=== PATIENT | male | born 1960 | race Caucasian/White ===

== ENCOUNTER 2017-11-05 09:49 | Emergency (ER) | payer OTHER ==
[2017-11-05 11:22] VITALS: BP 153/90
--- NOTE | 2017-11-05 12:16 | RAD ---
HISTORY: Cough COMPARISONS: November 09, 2009 VIEWS: 4: Frontal dual-energy and lateral views of the chest. FINDINGS: CARDIOMEDIASTINAL SILHOUETTE: The cardiomediastinal silhouette is normal. ALINA: The alina are normal. PLEURA: The costophrenic angles are sharp. No pleural abnormalities are noted. LUNG PARENCHYMA: The lungs are clear. ABDOMEN: The upper abdomen is clear. There is no subphrenic gas. BONES AND SOFT TISSUES: No bone or soft tissue abnormalities are noted. OTHER: None. IMPRESSION: NO ACTIVE CARDIOPULMONARY DISEASE.
--- NOTE | 2017-11-05 12:23 | UC ---
Respiratory Complaint HPI - HPI Summary HPI Summary: COUGH, CHEST RATTLING FOR ABOUT A WEEK. HAS SUBJECTIVE FEVER AND FATIGUE. - History of Current Complaint Chief Complaint: UCRespiratory Stated Complaint: COUGH Time Seen by Provider: 11/05/17 11:19 Hx Obtained From: Patient Onset/Duration: Gradual Onset, Lasting Days, Still Present Timing: Constant Severity Initially: Moderate Severity Currently: Moderate Pain Intensity: 4 Pain Scale Used: 0-10 Numeric Character: Cough: Nonproductive Aggravating Factors: Nothing Alleviating Factors: Nothing Associated Signs And Symptoms: Positive: Fever, URI - Allergies/Home Medications Allergies/Adverse Reactions: Allergies Allergy/AdvReac Type Severity Reaction Status Date / Time No Known Allergies Allergy Verified 11/05/17 11:20 PMH/Surg Hx/FS Hx/Imm Hx Previously Healthy: Yes - Surgical History Surgical History: Yes Surgery Procedure, Year, and Place: MOLE REMOVED FROM BACK 09/30/12 - Family History Known Family History: Positive: Hypertension - Social History Alcohol Use: Occasionally Substance Use Type: None Smoking Status (MU): Never Smoked Tobacco Have You Smoked in the Last Year: No - Immunization History Most Recent Influenza Vaccination: 09/10/13 Review of Systems Constitutional: Fever, Fatigue Respiratory: Cough Cardiovascular: Negative Gastrointestinal: Negative All Other Systems Reviewed And Are Negative: Yes Physical Exam Triage Information Reviewed: Yes Appearance: Well-Appearing, No Pain Distress, Well-Nourished Vital Signs: Initial Vital Signs Temp 99.7 F 11/05/17 11:20 Pulse 67 11/05/17 11:20 Resp 18 11/05/17 11:20 BP 153/90 11/05/17 11:20 Pulse Ox 99 11/05/17 11:20 Vital Signs Reviewed: Yes Eyes: Positive: Conjunctiva Clear ENT: Positive: Hearing grossly normal, Pharynx normal, TMs normal Neck: Positive: Supple, Nontender, No Lymphadenopathy Respiratory: Positive: No respiratory distress, No accessory muscle use, Other: - coarse sounds left mid lung. Negative: Wheezing Cardiovascular Exam: Normal Abdomen Description: Positive: Soft Musculoskeletal: Positive: No Edema Neurological: Positive: Alert Psychological: Positive: Age Appropriate Behavior Skin: Negative: rashes UC Diagnostic Evaluation - Laboratory O2 Sat by Pulse Oximetry: 99 - Radiology Xray Interpretation: No Acute Changes - CXR Radiology Interpretation Completed By: Radiologist Respiratory Course/Dx - Differential Dx/Diagnosis Provider Diagnoses: ACUTE BRONCHITIS Discharge - Discharge Plan Condition: Stable Disposition: HOME Prescriptions: Azithromycin [Azithromycin 500 MG TAB] 500 mg PO DAILY #5 tab Guaifenesin-Codeine [Codeine/Guaifenesin 100-10 mg/5Ml] 5 - 10 ml PO Q6H PRN # 150 ml MDD 40ML PRN Reason: Cough predniSONE TAB* [Deltasone TAB*] 40 mg PO DAILY #10 tab Patient Education Materials: Acute Bronchitis (ED) Referrals: Jocelyn Lobato MD [Primary Care Provider] - If Needed Additional Instructions: YOUR SYMPTOMS MAY BE VIRALLY MEDIATED BUT GIVEN THE LENGTH OF TIME YOU HAVE BEEN ILL WE WILL COVER YOU WITH ANTIBIOTICS. IF YOU START THE MEDICINE BE SURE TO TAKE IT FOR THE FULL COURSE. REST, HYDRATE, OTC MEDS NEEDED. WILL ALSO TREAT WITH PREDNISONE TO HELP WITH AIRWAY INFLAMMATION AND COUGH MEDICINE. SEEK FOLLOW-UP WITH YOUR PCP IF YOU ARE NOT IMPROVING OVER THE NEXT 1-2 WEEKS.
== END 2017-11-05 12:30 | disposition home or self-care (01) ==
LOC: UCEAST 09:49
DX: J20.9 Acute bronchitis, unspecified (principal); Z72.89 Other problems related to lifestyle
CPT/HCPCS: 71020; 99212; G0463

== ENCOUNTER 2017-12-06 18:07 | Emergency (ER) | payer OTHER ==
--- OUTSIDE RECORDS SUMMARY | 2017-12-06 19:35 | XMS REPORT ---
:1960 External Reference #:[id number] Author Organization [facility] Address [address] [place] [id number] Phone [phone] Care Team Providers Name Role Phone Jocelyn Lobato MD Care Team Information Bulldozer/Loader/Compactor/Scraper Unavailable Payers Type Date Identification Numbers Payment Provider Subscriber Commercial Policy Number: [id number] [employer] Ppo Raheem Blackwell PayID: [id number] [address] [place] [address] Problems Date Description Provider Status Onset: 01/11/2017 FH: Myocardial infarct in 1st degree Jocelyn Lobato MD Active male relative <55 years Family History Date Family Member(s) Problem(s) Comments General Kidney Disease 2 paternal uncles were on dialysis in late 70's. Father 78 Father White Onset: (2001) Father Arthritis Onset: (1969) Father Depression Onset: (2004) (age Father Heart Disease CAD with stent placement. 68 Years) Onset: (2009) Father Kidney Disease Father Hypercholesterolemia Father Hypertension Father Obesity Mother 78 Mother White Onset: (1999) Mother Hyperthyroidism First Brother 52 Onset: (2008) (age First Brother Heart Disease First operation two 46 Years) stents, and then two years later another two Social History Type Date Description Comments Education Highest level completed, Doctorate Marital Status Lives With Spouse Lives With Sons Occupation Professor [employer], [employer]. Work Status Currently Working Abuse No history of abuse Learning Barriers None ETOH Use Currently consumes alcohol 1 glass of wine 3-4 times a week. Smoking Patient has never smoked Daily Caffeine consumes chocolate frequently Daily Caffeine Coffee 3 a day Enjoy Exercising Enjoys exercising Exercise Type/Frequency Jogs 5 times a week 10 K Exercise Type/Frequency Exercises regularly Currently Active Patient is currently not sexually active STD's No STD History Allergies, Adverse Reactions, Alerts Date Description Reaction Status Severity Comments 07/03/2016 NKDA active Medications Medication Date Status Form Strength Qnty SIG Indications Ordering Provider No Active 08/22/ Active Banks A Medications 2016 MD Cheryle Terbinafine 04/01/ Hx Cream 1% 24gm Apply 1 B35.6 Banks A HCL 2017 - application MD Cheryle 04/15/ topically to 2017 affected area 2 times per day for 14days for ringworm Cephalexin 03/06/ Hx Tablets 500mg 20tabs take 1 tablet L72.3 Banks A 2017 - by mouth MD Cheryle 03/16/ every 12 2017 hours for infection Clotrimazole/B 03/06/ Hx Cream 1-0.05% 45gm apply to B35.6 Banks A etamethasone 2016 - affected area MD Cheryle Dipropionate 04/01/ twice a day 2017 for 2 weeks Atorvastatin 03/06/ Hx Tablets 10mg 30tabs take 1 tablet Z82.49 Banks A Calcium 2016 - by mouth MD Cheryle 04/01/ daily for 2017 elevation of cholesterol in blood E78.00 No Active 02/10/2017 - Hx Unknown Medications 03/06/2017 Poly-Iron 150 07/24/2016 - Hx Capsules 150mg 60cap take 2 D50. Banks A 02/10/2017 s capsules by 0 MD Cheryle mouth daily for iron deficiency Sertraline HCL 07/03/2016 - Hx Tablets 50mg 45tab take 1 and 1/2 F41. Banks A 12/18/2016 s tablet by 1 MD Cheryle mouth daily for anxiety Ferrous Sulfate 04/18/2015 - Hx Tablets 325(65F Take 1 tablet D50. Unknown 07/24/2016 e) mg by mouth once 0 daily for iron deficiency anemia Sertraline HCL 11/18/2010 - Hx Tablets 100mg take one F41. Unknown 07/03/2016 tablet by 1 mouth once daily for depression Simvastatin 11/18/2009 - Hx Tablets 10mg 1 by mouth Z82. Unknown 06/18/2015 every day 49 every night at bedtime E78.0 Immunizations CPT Code Status Date Vaccine Lot # [id number] Given 08/22/2017 Influenza Vaccine Quadrivalent Preser/Antibiotic [id number] Free [place] Use 13186 Given 07/24/2016 Tdap-Tetanus, Diphtheria Toxoids/Acellular [id number] Pertussis Vaccine 7+ 25419 Given 07/24/2016 Influenza Virus Split 3 Yrs And Above For [id number] Intramuscular Use Vital Signs Date Vital Result Comment 08/22/2017 Body Temperature 98.4 F O2 % BldC Oximetry 99 % Heart Rate 78 /min BP Systolic 110 mmHg BP Diastolic 70 mmHg BMI (Body Mass Index) 24.6 kg/m2 Weight 178.00 lb Height 71.25 inches 5'11.25" 03/06/2017 Body Temperature 98.6 F 01/11/2017 Weight 186.00 lb 07/03/2016 O2 % BldC Oximetry 98 % Heart Rate 74 /min BP Systolic 125 mmHg BP Diastolic 80 mmHg BMI (Body Mass Index) 24.8 kg/m2 Weight 178.00 lb Height 71 inches 5'11" Results Test Date Test Result H/L Range Note Order 12/03/2017 PPD Zero/Negative CBC No Diff 08/21/2017 White Blood Count 5.9 10^3/uL 3.5-10.8 Red Blood Count 4.95 10^6/uL 4.0-5.4 Hemoglobin 16.0 g/dL 14.0-18.0 Hematocrit 47 % 42-52 Mean Corpuscular Volume 95 fL High 80-94 Mean Corpuscular Hemoglobin 32 pg High 27-31 Mean Corpuscular HGB Conc 34 g/dL 31-36 Red Cell Distribution Width 13 % 10.5-15 Platelet Count 241 10^3/uL 150-450 Mean Platelet Volume 9 um3 7.4-10.4 Basic Metabolic Panel 08/21/2017 Sodium 138 mmol/L 133-145 Chloride 104 mmol/L 101-111 Co2 Carbon Dioxide 31 mmol/L 22-32 Glucose 91 mg/dL 70-100 Blood Urea Nitrogen 16 mg/dL 6-24 Creatinine 1.05 mg/dL 0.67-1.17 BUN/Creatinine Ratio 15.2 8-20 Calcium 9.4 mg/dL 8.6-10.3 Egfr Non- 73.3 >60 Egfr 94.3 >60 1 Potassium 5.2 mmol/L High 3.5-5.0 Anion Gap 3 mmol/L 2-11 Lipid Profile (Trig/Chol/HDL) 08/21/2017 Triglycerides 165 mg/dL High < 150 2 Cholesterol 212 mg/dL High <200 3 HDL Cholesterol 49.8 mg/dL >40 4 LDL Cholesterol 129 mg/dL <130 5 Laboratory test finding 08/21/2017 CRP High Sensitivity 0.30 mg/L 6 Ferritin 62.5 ng/mL 24-336 7 Laboratory test finding 12/13/2016 LDL Cholesterol Direct 131 mg/dL High & lt;100 8 CBC No Diff 12/13/2016 White Blood Count 6.0 10^3/uL 3.5-10.8 Red Blood Count 5.01 10^6/uL 4.0-5.4 Hemoglobin 16.1 g/dL 14.0-18.0 Hematocrit 47 % 42-52 Mean Corpuscular Volume 94 fL 80-94 Mean Corpuscular Hemoglobin 32 pg High 27-31 Mean Corpuscular HGB Conc 34 g/dL 31-36 Red Cell Distribution Width 14 % 10.5-15 Platelet Count 231 10^3/uL 150-450 Mean Platelet Volume 9 um3 7.4-10.4 Laboratory test finding 12/13/2016 Ferritin 36.2 ng/mL 24-336 Iron & Iron Binding Capacity 12/13/2016 Iron 77 g/dL 50-212 Unsaturated Iron Binding 290 g/dL Total Iron Binding Capacity 367 g/dL 250-450 % Iron Saturation 21 % 15-55 Transglutaminase Igg & 07/28/2016 Tissue Transglutaminase IgA <1.2 U/ mL 9 Iga Ab Tissue Transglutaminase IgG Ab 1.3 U/mL 10 Transglutaminase Igg 07/28/2016 Tissue Transglutaminase <1.2 U/mL < 4 11 & Iga IgA Ab Tissue Transglutaminase IgG Ab 1.3 U/mL <6 12 Urinalysis Profile 07/19/2016 Urine Color Yellow 13 Urine Appearance Clear 13 Urine Specific [place] 1.017 1.010-1.030 13 Urine pH 5.0 5-9 13 Urine Urobilinogen Negative Negative 13 Urine Ketones Negative Negative 13 Urine Protein Negative Negative 13 Urine Leukocytes Negative Negative 13 Urine Blood Negative Negative 13 * * Negative 13, 14 Urine Nitrite Negative Negative 13 Urine Bilirubin Negative Negative 13 Urine Glucose Negative Negative 13 Laboratory test finding 07/19/2016 CRP High Sensitivity 1.90 mg/L <3 13, 15 TSH (Thyroid Stim Horm) 1.43 mcIU/mL 0.34-5.60 13, 16 Testosterone 317.97 ng/dL 240-950 13, 17 PSA Screening 0.943 ng/mL 0-4.000 13, 18 Lipid Profile (Trig/Chol/HDL) 07/19/2016 Triglycerides 196 mg/dL High < 150 13, 19 Cholesterol 204 mg/dL High <200 13, 20 HDL Cholesterol 45.8 mg/dL >35 13, 21 LDL Cholesterol 119 mg/dL High <100 13, 22 Comp Metabolic Panel 07/19/2016 Sodium 138 mmol/L 133-145 13 Potassium 4.4 mmol/L 3.5-5.0 13 Chloride 105 mmol/L 101-111 13 Co2 Carbon Dioxide 26 mmol/L 22-32 13 Anion Gap 7 mmol/L 2-11 13 Glucose 93 mg/dL 70-100 13 Blood Urea Nitrogen 18 mg/dL 6-24 13 Creatinine 1.16 mg/dL 0.67-1.17 13 BUN/Creatinine Ratio 15.5 8-20 13 Calcium 9.4 mg/dL 8.6-10.3 13 Total Protein 6.8 g/dL 6.4-8.9 13 Albumin 4.4 g/dL 3.2-5.2 13 Globulin 2.4 g/dL 2-4 13 Albumin/Globulin Ratio 1.8 1-3 13 Total Bilirubin 0.50 mg/dL 0.2-1.0 13 Alkaline Phosphatase 62 U/L 34-104 13 Alt 23 U/L 7-52 13 Ast 19 U/L 13-39 13 Egfr Non- 65.6 >60 13 Egfr 84.4 >60 13, 23 Laboratory test finding 07/19/2016 Vitamin B12 689 pg/mL 180-914 13, 24 Iron & Iron Binding Capacity 07/19/2016 Iron 47 g/dL Low 50-212 13 Unsaturated Iron Binding 317 g/dL 13 Total Iron Binding Capacity 364 g/dL 250-450 13 % Iron Saturation 13 % Low 15-55 13 Laboratory test finding 07/19/2016 Ferritin 31.2 ng/mL 24-336 13, 25 CBC No Diff 07/19/2016 White Blood Count 8.5 10^3/uL 3.5-10.8 13 Red Blood Count 5.07 10^6/uL 4.0-5.4 13 Hemoglobin 16.2 g/dL 14.0-18.0 13 Hematocrit 48 % 42-52 13 Mean Corpuscular Volume 95 fL High 80-94 13 Mean Corpuscular Hemoglobin 32 pg High 27-31 13 Mean Corpuscular HGB Conc 34 g/dL 31-36 13 Red Cell Distribution Width 14 % 10.5-15 13 Platelet Count 240 10^3/uL 150-450 13 Mean Platelet Volume 9 um3 7.4-10.4 13 1 Because ethnic data is not always readily available, this report includes an eGFR for both -Americans and non- Americans. The National Kidney Disease Education Program (NKDEP) does not endorse the use of the MDRD equation for patients that are not between the ages of 18 and 70, are , have extremes of body size, muscle mass, or nutritional status, or are non- or non-. According to the National Kidney Foundation, irrespective of diagnosis, the stage of the disease is based on the level of kidney function: Stage Description GFR(mL/min/1.73 m(2)) 1 Kidney damage with normal or decreased GFR 90 2 Kidney damage with mild decrease in GFR 60-89 3 Moderate decrease in GFR 30-59 4 Severe decrease in GFR 15-29 5 Kidney failure <15 (or dialysis) 2 Desirable <150 Borderline high 150-199 High 200-499 Very High >500 3 Desirable <200 Borderline high 200-239 High >239 4 Low <40 Desirable: 40-60 High: >60 5 Desirable: <100 mg/dL Near Optimal: 100-129 mg/dL Borderline High: 130-159 mg/dL High: 160-189 mg/dL Very High: >189 mg/dL 6 Low risk: <1.00 Average risk: 1.00-3.00 High risk: >3.00 7 FASTING 8 Desirable: <100 mg/dL Near Optimal: 100-129 mg/dL Borderline High: 130-159 mg/dL High: 160-189 mg/dL Very High: >189 mg/dL 9 REFERENCE VALUE <4.0 (Negative) 10 REFERENCE VALUE <6.0 (Negative) Test Performed by: [place] [address] Sustainable Landscape Architect: Camden Wayne II, M.D., Ph.D. 11 REFERENCE VALUE <4.0 (Negative) 12 REFERENCE VALUE <6.0 (Negative) Test Performed by: [place] [address] Sustainable Landscape Architect: Camden Wayne II, M.D., Ph.D. 13 PT IS FASTING 14 *Ascorbic acid is present which may interfere with detection of blood. 15 Low risk: <1.00 Average risk: 1.00-3.00 High risk: >3.00 16 PT IS FASTING 17 PT IS FASTING 18 Serum levels of PSA measured using the Whitney Grace DXI Hybritech immunoassay should not be interpreted as absolute evidence of the presence or absence of disease. The PSA value should be used in conjunction with other pertinent clinical diagnostic procedures. The values obtained with different assay methods or kits cannot be used interchangeably. 19 Desirable <150 Borderline high 150-199 High 200-499 Very High >500 20 Desirable <200 Borderline high 200-239 High >239 21 Low <40 Desirable: 40-60 High: >60 22 Desirable: <100 mg/dL Near Optimal: 100-129 mg/dL Borderline High: 130-159 mg/dL High: 160-189 mg/dL Very High: >189 mg/dL 23 Because ethnic data is not always readily available, this report includes an eGFR for both -Americans and non- Americans. The National Kidney Disease Education Program (NKDEP) does not endorse the use of the MDRD equation for patients that are not between the ages of 18 and 70, are , have extremes of body size, muscle mass, or nutritional status, or are non- or non-. According to the National Kidney Foundation, irrespective of diagnosis, the stage of the disease is based on the level of kidney function: Stage Description GFR(mL/min/1.73 m(2)) 1 Kidney damage with normal or decreased GFR 90 2 Kidney damage with mild decrease in GFR 60-89 3 Moderate decrease in GFR 30-59 4 Severe decrease in GFR 15-29 5 Kidney failure <15 (or dialysis) 24 Normal Range 180 to 914 Indeterminate Range 145 to 180 Deficient Range <145 25 PT IS FASTING Procedures Date CPT Code Description Status 12/03/2017 77451 Destruction 1st lesion; e.g. cryosurgery Completed 04/28/2015 Colonoscopy Completed 01/21/2013 Colonoscopy Completed Encounters Type Date Location Provider CPT E/M Dx Office Visit 08/22/2017 2:20p [place] [address] Z00.01 Z82.49 E78.00 K40.90 N43.2 Z23 Office Visit 04/01/2017 1:00p [place] [address] B35.6 L72.3 E78.00 Z82.49 Office Visit 03/06/2017 2:00p [place] [address] L72.3 B35.6 Z82.49 Office Visit 01/11/2017 10:00a [place] [address] F41.1 D50.0 Z82.49 Office Visit 07/24/2016 10:00a [place] [address] D50.0 E78.0 F41.1 Z23 Office Visit 07/03/2016 10:40a [place] [address] Z00.01 Z12.5 D50.0 E78.0 F41.1 F52.21 Plan of Care Future Appointment(s):08/27/2018 2:20 pm - Jocelyn Lobato MD at Main Xxtaen7912/03/2017 - Jocelyn Lobato MDZ11.1 Encounter for screening for respiratory tuberculosisComments:Asymptomatic.B07.0 Plantar wartComments: Treated with liquid nitrogen after verbal consent.
[2017-12-06 19:38] VITALS: BP 131/66
--- NOTE | 2017-12-06 19:56 | UC ---
Respiratory Complaint HPI - HPI Summary HPI Summary: Pt presents accompanied by son complaining of an ongoing dry cough. He tells me that his cough began just before ck - he was placed on a zpak and his symptoms moderately improved for a few days, but his cough returned. His son was diagnosed with pneumonia this week and he wants to be sure he doesn't have PNA as well. Has not been taking anything OTC. Says that sleeping at night is the hardest, due to the cough. Denies fever, chills, SOB, chest pain, abdominal pain, n/v/d/c, or body aches. - History of Current Complaint Chief Complaint: UCRespiratory Stated Complaint: COUGH Time Seen by Provider: 12/06/17 19:56 Hx Obtained From: Patient Onset/Duration: Gradual Onset Timing: Constant Severity Initially: Mild Severity Currently: Mild Pain Intensity: 3 Pain Scale Used: 0-10 Numeric Character: Cough: Nonproductive - Allergies/Home Medications Allergies/Adverse Reactions: Allergies Allergy/AdvReac Type Severity Reaction Status Date / Time No Known Allergies Allergy Verified 11/05/17 11:20 PMH/Surg Hx/FS Hx/Imm Hx - Surgical History Surgical History: Yes Surgery Procedure, Year, and Place: MOLE REMOVED FROM BACK 09/30/12 - Family History Known Family History: Positive: Hypertension - Social History Occupation: Employed Full-time Lives: With Family Alcohol Use: Occasionally Substance Use Type: None Smoking Status (MU): Never Smoked Tobacco Have You Smoked in the Last Year: No - Immunization History Most Recent Influenza Vaccination: 09/10/13 Review of Systems Constitutional: Negative Skin: Negative Eyes: Negative ENT: Negative Respiratory: Cough Cardiovascular: Negative Gastrointestinal: Negative Musculoskeletal: Negative Neurological: Negative All Other Systems Reviewed And Are Negative: Yes Physical Exam Triage Information Reviewed: Yes Appearance: Well-Appearing, No Pain Distress, Well-Nourished Vital Signs: Initial Vital Signs Temp 97.7 F 12/06/17 19:34 Pulse 55 12/06/17 19:34 Resp 18 12/06/17 19:34 BP 131/66 12/06/17 19:34 Pulse Ox 100 12/06/17 19:34 Vital Signs Reviewed: Yes Eyes: Positive: Conjunctiva Clear. Negative: Conjunctiva Inflamed, Discharge ENT: Positive: Hearing grossly normal, Pharynx normal, TMs normal, Uvula midline. Negative: Pharyngeal erythema, Nasal congestion, Nasal drainage, TM bulging, TM dull, TM red, Tonsillar swelling, Tonsillar exudate, Hoarse voice, Sinus tenderness Neck: Positive: Supple, Nontender, No Lymphadenopathy Respiratory: Positive: Chest non-tender, Lungs clear, Normal breath sounds, No respiratory distress, No accessory muscle use Cardiovascular: Positive: RRR, No Murmur, Pulses Normal Neurological: Positive: Alert Psychological: Positive: Age Appropriate Behavior Skin: Negative: rashes UC Diagnostic Evaluation - Laboratory O2 Sat by Pulse Oximetry: 100 Respiratory Course/Dx - Course Course Of Treatment: Bronchitis - tessalon and codeine-guaifen. Reference #: [id number] - istop ok - Differential Dx/Diagnosis Provider Diagnoses: Bronchitis Discharge - Discharge Plan Condition: Stable Disposition: HOME Prescriptions: Benzonatate CAP* [Tessalon 100 MG CAP*] 100 mg PO TID PRN #21 cap PRN Reason: Cough Guaifenesin-Codeine [G Tussin AC 100-10 mg/5Ml] 5 ml PO BEDTIME PRN #30 ml MDD 5mL PRN Reason: Cough Patient Education Materials: Acute Bronchitis (ED) Referrals: Jocelyn Lobato MD [Primary Care Provider] - Additional Instructions: If you develop a fever, shortness of breath, chest pain, new or worsening symptoms - please call your PCP or go to the ED.
== END 2017-12-06 20:28 | disposition home or self-care (01) ==
LOC: UCEAST 18:07
DX: J40 Bronchitis, not specified as acute or chronic (principal)
CPT/HCPCS: 99212; G0463

== ENCOUNTER 2017-12-15 09:20 | Emergency (ER) | payer OTHER ==
--- OUTSIDE RECORDS SUMMARY | 2017-12-15 11:07 | XMS REPORT ---
:1960 External Reference #:[id number] Author Organization [facility] Address [address] [place] [address] Phone [phone] Care Team Providers Name Role Phone Jocelyn Lobato MD Care Team Information Emission Specialist Unavailable Payers Type Date Identification Numbers Payment Provider Subscriber Commercial Policy Number: [id number] [employer] Ppo Raheem Blackwell PayID: [id number] [address] [place] [address] Problems Date Description Provider Status Onset: 01/11/2017 [...] Spouse Lives With Sons Occupation Professor [employer], [employer]. Work Status Currently Working Abuse No history [...] CPT Code Status Date Vaccine Lot # [id number] Given 08/22/2017 Influenza Vaccine Quadrivalent Preser/Antibiotic [id number] Free Im Use 05799 Given 07/24/2016 Tdap-Tetanus, Diphtheria Toxoids/Acellular [id number] Pertussis Vaccine 7+ 63398 Given 07/24/2016 Influenza Virus Split 3 Yrs And Above For [id number] Intramuscular Use Vital Signs Date Vital Result Comment 12/09/2017 Body Temperature 98.9 F Heart Rate 66 /min BP Systolic 115 mmHg BP Diastolic 70 mmHg 08/22/2017 Body Temperature 98.4 F O2 % [...] 13 Urine Appearance Clear 13 Urine Specific [place] 1.017 1.010-1.030 13 Urine pH 5.0 5-9 [...] REFERENCE VALUE <6.0 (Negative) Test Performed by: [facility] [place] [address] Plant Associate: Camden Wayne II, M.D., Ph.D. 11 REFERENCE VALUE <4.0 (Negative) 12 REFERENCE VALUE <6.0 (Negative) Test Performed by: [place] [address] Plant Associate: Camden Wayne II, M.D., Ph.D. 13 PT [...] Procedures Date CPT Code Description Status 12/03/2017 96802 Destruction 1st lesion; e.g. cryosurgery Completed 04/28/2015 Colonoscopy Completed 01/21/2013 Colonoscopy Completed Encounters Type Date Location Provider CPT E/M Dx Office Visit 12/09/2017 12:20p [place] [address] J20.9 Office Visit 08/22/2017 2:20p [place] [address] Z00.01 Z82.49 E78.00 K40.90 N43.2 Z23 Office Visit 04/01/2017 1:00p [place] [address] B35.6 L72.3 E78.00 Z82.49 Office Visit 03/06/2017 2:00p [place] [address] L72.3 B35.6 Z82.49 Office Visit 01/11/2017 10:00a [place] [address] F41.1 D50.0 Z82.49 Office Visit 07/24/2016 10:00a [place] [address] D50.0 E78.0 F41.1 Z23 Office Visit 07/03/2016 10:40a [place] [address] Z00.01 Z12.5 D50.0 E78.0 F41.1 F52.21 Plan of Care Future Appointment(s):08/27/2018 2:20 pm - Jocelyn Lobato MD at Main [id number]/09/2017 - Jocelyn Lobato MDJ20.9 Acute bronchitis, unspecifiedComments:Clinically stable.Lifestyle and dietary modifications advised.
[2017-12-15 11:15] VITALS: BP 154/84
--- NOTE | 2017-12-15 11:45 | UC ---
Throat Pain/Nasal Sergio HPI - HPI Summary HPI Summary: 57 y/o male presents to the urgent care c/o dry cough and sinus pressure and pain for the past week. Pt repoorts symptoms started w/ the common cold about 2 weeks ago. Now nasal discharge is yellowish w/ +PND. [place]. Pain is 5/10. He has taking Robutussin PO to alleviate symptoms. Pt denies fever, SOB, chest pain, abdominal pain, N/V/D - History of Current Complaint Chief Complaint: UCGeneralIllness Stated Complaint: CONGESTED Time Seen by Provider: 12/15/17 11:35 Hx Obtained From: Patient Onset/Duration: Gradual Onset, Lasting Weeks - 2 weeks, Still Present, Worse Since - 1 week Severity: Moderate Pain Intensity: 5 Pain Scale Used: 0-10 Numeric Cough: Nonproductive Associated Signs & Symptoms: Positive: Sinus Discomfort, Nasal Discharge. Negative: Dysphagia, Fever - Epiglottits Risk Factors Epiglottis Risk Factors: Negative - Allergies/Home Medications Allergies/Adverse Reactions: Allergies Allergy/AdvReac Type Severity Reaction Status Date / Time No Known Allergies Allergy Verified 12/15/17 11:08 PMH/Surg Hx/FS Hx/Imm Hx Previously Healthy: Yes Endocrine History: Dyslipidemia - diet control - Surgical History Surgical History: Yes Surgery Procedure, Year, and Place: MOLE REMOVED FROM BACK 09/30/12 - Family History Known Family History: Positive: Hypertension - Social History Occupation: Employed Full-time Lives: With Family Alcohol Use: Occasionally Substance Use Type: None Smoking Status (MU): Never Smoked Tobacco Have You Smoked in the Last Year: No - Immunization History Most Recent Influenza Vaccination: 09/10/13 Review of Systems Constitutional: Negative Skin: Negative Eyes: Negative ENT: Nasal Discharge, Sinus Congestion, Sinus Pain/Tenderness Respiratory: Cough Cardiovascular: Negative Gastrointestinal: Negative Genitourinary: Negative Motor: Negative Neurovascular: Negative Musculoskeletal: Negative Neurological: Headache Psychological: Negative Is Patient Immunocompromised?: No All Other Systems Reviewed And Are Negative: Yes Physical Exam Triage Information Reviewed: Yes Vital Signs: Initial Vital Signs Temp 98.7 F 12/15/17 11:09 Pulse 61 12/15/17 11:09 Resp 16 12/15/17 11:09 BP 154/84 12/15/17 11:09 Pulse Ox 100 12/15/17 11:09 - Additional Comments Vitals: reviewed General: Well developed, well-nourished male patient with NAD. Head and face: Normocephalic and atraumatic, Positive tenderness over the frontal and maxillary sinuses.. Eyes: PERRLA, EOMI x 2. Normal conjunctiva. No eye discharge. ENT: Ears and TM with normal limits. Nose: with yellowish discharge and erythematous mucosa. Pharynx with erythema , no exudate. Neck: Supple, no JVD, no carotid bruits and no lymphadenopathy. Lungs: clear, no rales, no rhonchi, no wheezes. CVS: RRR, S1 and S2 present no murmurs or gallops appreciated. Abdomen: soft nontender with positive bowel sounds. Extremities: no edema noted. Neuro: WNL. Skin: warm and dry Throat Pain/Nasal Course/Dx - Course Course Of Treatment: 57 y/o male presents to the urgent care c/o dry cough and sinus pressure and pain for the past week. Pt repoorts symptoms started w/ the common cold about 2 weeks ago. Now nasal discharge is yellowish w/ +PND. [place]. Pain is 5/10. He has taking Robutussin PO to alleviate symptoms. Pt denies fever , SOB, chest pain, abdominal pain, N/V/D. Hx obtained. Pt with 2 weeks of symptoms getting worse. Pt Rx Augmentin PO and flonase nasal spray. Pt's BP is elevated today advised to decrease salt in diet, monitor BP and f/u with PCP for further management. Discharge instructions explained to Pt. Advised to Return to the clinic or PCP if symptoms do not improve.Pt understood and agreed with plan of care. - Differential Dx/Diagnosis Differential Diagnosis/HQI/PQRI: Influenza, Pharyngitis, Sinusitis, Tonsillitis , URI Provider Diagnoses: 1- Acute bacterial sinusitis. 2- elevated BP w/o Hx of HTN Discharge - Discharge Plan Condition: Stable Disposition: HOME Prescriptions: Amoxicillin/Clavulanate TAB* [Augmentin TAB 875*] 875 mg PO BID #20 tab Fluticasone NASAL SPRAY 50MCG* [Flonase NASAL SPRAY 50MCG*] 2 spray BOTH NARES DAILY #1 btl Patient Education Materials: Sinusitis (ED), Low-Sodium Diet (ED) Referrals: Jocelyn Lobato MD [Primary Care Provider] - 1 Week Additional Instructions: 1- Please increase fluid intake and rest. take full course of antibiotic to avoid resistance 2-Use Flonase as directed to help drain fluid. Also buy saline drops to clear sinuses. Use a humidifier at night time. 3-Take Delsym PO to alleviates cough 4-Return to the clinic or PCP if symptoms do not improve for further management and treatment 5-Your BP is elevated today. please decrease salt in your diet, monitor BP and if it continues to be elevated please f/u with your PCP for further management
== END 2017-12-15 11:57 | disposition home or self-care (01) ==
LOC: UCEAST 09:20
DX: J01.90 Acute sinusitis, unspecified (principal); E78.5 Hyperlipidemia, unspecified; B96.89 Other specified bacterial agents as the cause of diseases classified elsewhere; R03.0 Elevated blood-pressure reading, without diagnosis of hypertension
CPT/HCPCS: 99212; G0463